=== PATIENT | male | born 1930 | race Caucasian/White ===

== ENCOUNTER 2022-04-11 10:19 | Outpatient (CLI) | payer MEDICARE ==
[2022-04-11 13:24] LABS: ALT (SGPT) 31 U/L (8-55); AST (SGOT) 45 U/L (5-34); Albumin 3.9 g/dL (3.4-4.8); Alkaline Phosphatase 83 U/L (40-110); Anion Gap 15 mmol/L (10-20); BUN (Urea Nitrogen) 29 mg/dL (8.4-25.7); Bilirubin, Direct 0.5 mg/dL (0.1-0.3); Bilirubin, Total 0.9 mg/dL (0.2-1.2); Calc. Creatinine Clearance 0 mL/min (70-130); Carbon Dioxide 23 mmol/L (23-31); Chloride 104 mmol/L (98-107); Estimated GFR 82; Glucose 97 mg/dL (83-110); Protein, Total 6.7 g/dL (5.8-8.1); Sodium 137 mmol/L (136-145)
[2022-04-11 13:28] LABS: #Basophils 0.1 10x3/uL (0.0-0.2); #Monocytes 0.5 10x3/uL (0.0-1.1); #Neutrophils 6.8 10x3/uL (1.5-8.4); %Eosinophils 0.1 % (0.0-6.0); %Lymphocytes 6.2 % (18.0-47.0); %Neutrophils 81.9 % (40.0-75.0); Hemoglobin 10.3 g/dL (13.5-17.5); Mean Corpuscular HGB CONC 34.1 g/dL (32.0-36.0); Mean Corpuscular Volume 93.8 fl (81.2-95.1); Platelet Count 253 10x3/uL (150-450); RBC Distribution Width 18.8 % (11.5-14.5); Red Blood Cell (RBC) Count 3.22 10x6/uL (4.32-5.72); White Blood Cell (WBC) Count 8.3 10x3/uL (3.5-10.5)
[2022-04-11 14:04] LABS: Anisocytosis MODERATE=16-30 cells (100X) (0-5/hpf); Elliptocytes SLIGHT = 2-5 cells (100X) (0-1/hpf); Ovalocytes SLIGHT = 2-5 cells (100X) (0-1/hpf); Poikilocytosis MODERATE=16-30 cells (100X) (0-5/hpf)
[2022-04-11 14:05] LABS: Large Platelets SLIGHT; Platelet Morphology Comment Appears Adequate
== END 2022-04-11 10:20 | disposition home or self-care (01) ==
LOC: LABBT 10:19
PROVIDERS: ATTEND Surgery
DX: Z01.812 Encounter for preprocedural laboratory examination (principal); K80.20 Calculus of gallbladder without cholecystitis without obstruction
CPT/HCPCS: 80048; 80076; 85025

== ENCOUNTER 2022-04-14 07:22 | Day surgery (SDC) | payer MEDICARE ==
[2022-04-13 10:59] VITALS: BMI 22.3
[2022-04-14] MEDS ORDERED: FENTANYL 50 MCG/ML 1 ML VIAL ONE ×3 (11:26→13:31)
[2022-04-14] MEDS ORDERED: SUGAMMADEX SODIUM 200 MG/2 ML VIAL ONE ×2 (11:26→13:07)
[2022-04-14] MEDS ORDERED: Bupivacaine/Epinephrine 0.25% 30 ML VIAL ONE (11:34)
[2022-04-14] MEDS ORDERED: Iopamidol 30 ML ONE (11:34)
[2022-04-14] MEDS ORDERED: Sodium Chloride 0.9% 100 ML ONE (11:38)
[2022-04-14] MEDS ORDERED: CEFAZOLIN 2 GM VIAL ONE (11:38)
[2022-04-14] MEDS ORDERED: Rocuronium Bromide 10 MG/ML (10ML VIAL) ONE (11:55)
[2022-04-14] MEDS ORDERED: Ondansetron PF 4 MG/2 ML Vial ONE (11:55)
[2022-04-14] MEDS ORDERED: NEOSTIGMINE 3 MG/3 ML SYR 3 MG/3 ML SYRINGE ONE (11:55)
[2022-04-14] MEDS ORDERED: Dexamethasone 20 MG/5 ML VIAL ONE (11:55)
[2022-04-14] MEDS ORDERED: GLYCOPYRROLATE/PF 0.2 MG/ML VIAL ONE (11:55)
[2022-04-14] MEDS ORDERED: PROPOFOL 200 MG/20 ML VIAL ONE (11:55)
[2022-04-14] MEDS ORDERED: Labetalol HCl 100 MG/20 ML VIAL ONE (13:15)
[2022-04-14] MEDS ORDERED: Fentanyl 250 MCG/5 ML VIAL ONE (13:18)
[2022-04-14] MEDS ORDERED: hydrALAZINE 20 MG/ML VIAL ONE (13:29)
[2022-04-14] MEDS ORDERED: HYDROcodone/Acetaminophen 5/325 mg Tablet ONE (14:40)
[2022-04-14] MEDS ORDERED: Simethicone Chewable 80 MG TAB PO SCH (15:15)
== END 2022-04-14 17:12 | disposition home or self-care (01) ==
LOC: SDC 07:22
PROVIDERS: ATTEND Surgery
PROC: 0FT44ZZ Resection of Gallbladder, Percutaneous Endoscopic Approach (ICD-10-PCS; principal; 2022-04-14)
PROC: BF101ZZ Fluoroscopy of Bile Ducts using Low Osmolar Contrast (ICD-10-PCS; 2022-04-14)
DX: K81.1 Chronic cholecystitis (principal); I51.9 Heart disease, unspecified; E78.5 Hyperlipidemia, unspecified; G47.30 Sleep apnea, unspecified; Z79.01 Long term (current) use of anticoagulants; Z79.899 Other long term (current) drug therapy; Z95.0 Presence of cardiac pacemaker; Z95.1 Presence of aortocoronary bypass graft
CPT/HCPCS: 47532; 47563; J1610; J3010; 88304; C1889; J0360; J1100; J2405; J2704; J3490; Q9967

== ENCOUNTER 2022-07-21 15:43 | Inpatient (IN) | payer MEDICARE ==
[2022-07-21] MEDS ORDERED: Ondansetron PF 4 MG/2 ML Vial IVP PRN (21:43)
[2022-07-21] MEDS ORDERED: Ondansetron ODT 4 MG TAB PO PRN (21:43)
[2022-07-21] MEDS ORDERED: Senokot S 8.6-50 MG TAB PO PRN (21:43)
[2022-07-21] MEDS ORDERED: Acetaminophen 325 MG TAB PO PRN (21:43)
[2022-07-21 22:00] VITALS: BMI 23.7
[2022-07-21 22:30] LABS: Hemoglobin 7.9 g/dL (14.0-18.0)
[2022-07-21] MEDS ORDERED: Ipratropium/Albuterol 3 ML NEB NEB SCH (22:30)
[2022-07-21 22:37] LABS: INR-International Normal Ratio 1.3; Prothrombin Time 16.9 sec (12.0-14.7)
[2022-07-21 22:38] LABS: PTT 35.9 sec (22.9-36.1)
[2022-07-21] MEDS ORDERED: Ipratropium/Albuterol 3 ML NEB NEB PRN (23:14)
[2022-07-21] MEDS: Cefepime 2 GM in Sodium Chloride 0.9% 100 ML IVPB SCH (23:34)
[2022-07-22 06:16] LABS: Hemoglobin 7.7 g/dL (14.0-18.0); Mean Corpuscular HGB CONC 33.8 g/dL (32.0-36.0); Mean Corpuscular Hemoglobin 33.4 pg (27.0-31.0); Mean Corpuscular Volume 98.9 fl (78.0-98.0); Mean Platelet Volume 8.3 fL (7.4-10.4); Platelet Count 64 10x3/uL (130-400); RBC Distribution Width 25.7 % (11.5-14.5); Red Blood Cell (RBC) Count 2.29 mill/uL (4.70-6.10); Reflex for Review?? YES; White Blood Cell (WBC) Count 0.7 10x3/uL (4.8-10.8)
[2022-07-22 06:34] LABS: Anion Gap 10 mmol/L (10-20); BUN (Urea Nitrogen) 20 mg/dL (8.4-25.7); Calc. Creatinine Clearance 70 mL/min (70-130); Calcium 7.8 mg/dL (7.8-10.44); Carbon Dioxide 23 mmol/L (23-31); Chloride 104 mmol/L (98-107); Estimated GFR 85; Glucose 98 mg/dL (83-110); Potassium 3.3 mmol/L (3.5-5.1); Sodium 134 mmol/L (136-145)
[2022-07-22 07:10] LABS: Anisocytosis SLIGHT = 6-15 cells (100X) (0-5/hpf); Band 4 % (5-11); Differential Comment Immature Cell(s); Elliptocytes MODERATE= 6-15 cells (100X) (0-1/hpf); Eosinophils 2 % (0-10); Lymphocytes 62 % (21-51); MDiff Complete? YES; Monocytes 2 % (0-10); Neutrophil 24 % (42-75); Nucleated RBC 2 % (0); Platelet Morphology Comment Appears Decreased; Poikilocytosis MODERATE=16-30 cells (100X) (0-5/hpf); Reactive Lymphocytes 2 % (0-10); Schistocytes SLIGHT = 2-5 cells (100X) (0-1/hpf)
[2022-07-22] MEDS ORDERED: Senokot S 8.6-50 MG TAB PO PRN (08:15)
[2022-07-22] MEDS ORDERED: Furosemide 20 MG/2 ML VIAL SLOW IVP SCH ×2 (08:15→14:00)
[2022-07-22] MEDS: Thiamine 100 MG TAB PO SCH (08:48)
[2022-07-22] MEDS: CO Q-10 CAPSULE 50 MG PO SCH (08:48)
[2022-07-22] MEDS: Fludrocortisone Acetate 0.1 MG TAB PO SCH (08:49)
[2022-07-22 09:30] LABS: Reticulocyte Count 0.8 % (0.5-1.5)
[2022-07-22 09:49] LABS: Vancomycin, Trough 4.6 ug/mL
[2022-07-22] MEDS ORDERED: Vancomycin 1 GM in Premix Bag 1 BAG IVPB SCH (10:00)
[2022-07-22 10:06] LABS: HIV (1/2) Antibody/Antigen Non-Reactive (NonReactive); Hep C IgG Ab Non-Reactive (NonReactive); Hep C Index 0.19 S/CO (0-0.79)
[2022-07-22] MEDS: Cefepime 2 GM in Sodium Chloride 0.9% 100 ML IVPB SCH ×2 (10:40→23:26)
[2022-07-22] MEDS: Potassium Bicarbonate/Cit Ac 20 MEQ TAB PO SCH ×2 (10:45→13:51)
[2022-07-22] MEDS: Vancomycin 1 GM in Premix Bag 1 BAG IVPB SCH ×2 (11:40→23:27)
[2022-07-22] MEDS: Atorvastatin Calcium 20 MG TAB PO SCH (20:38)
[2022-07-23] MEDS ORDERED: Furosemide 20 MG/2 ML VIAL SLOW IVP SCH ×2 (06:00→16:30)
[2022-07-23 06:09] LABS: Mean Corpuscular Hemoglobin 33.7 pg (27.0-31.0); Mean Corpuscular Volume 99.1 fl (78.0-98.0); RBC Distribution Width 25.1 % (11.5-14.5); Red Blood Cell (RBC) Count 2.36 mill/uL (4.70-6.10); White Blood Cell (WBC) Count 0.7 10x3/uL (4.8-10.8)
[2022-07-23 06:24] LABS: Anion Gap 9 mmol/L (10-20); BUN (Urea Nitrogen) 20 mg/dL (8.4-25.7); Calc. Creatinine Clearance 74 mL/min (70-130); Calcium 8.1 mg/dL (7.8-10.44); Carbon Dioxide 28 mmol/L (23-31); Chloride 101 mmol/L (98-107); Estimated GFR 87; Glucose 101 mg/dL (83-110); Potassium 3.7 mmol/L (3.5-5.1); Sodium 134 mmol/L (136-145)
[2022-07-23 06:46] LABS: Crenated RBC SLIGHT = 1-5 cells (100X) (None Seen); Lymphocytes 80 % (21-51); MDiff Complete? YES; Monocytes 4 % (0-10); Neutrophil 16 % (42-75); Ovalocytes SLIGHT = 2-5 cells (100X) (0-1/hpf); Platelet Count 46 10x3/uL (130-400); Platelet Morphology Comment Appears Decreased; Poikilocytosis MODERATE=16-30 cells (100X) (0-5/hpf); Polychromasia SLIGHT = 2-3 cells (100X) (0-2/hpf); Schistocytes SLIGHT = 2-5 cells (100X) (0-1/hpf)
[2022-07-23] MEDS: CO Q-10 CAPSULE 50 MG PO SCH (08:54)
[2022-07-23] MEDS: Thiamine 100 MG TAB PO SCH (08:54)
[2022-07-23] MEDS: Fludrocortisone Acetate 0.1 MG TAB PO SCH (08:54)
[2022-07-23 09:16] LABS: Hep B Surface AG-Rflx Sendout Negative (Negative); Hepatitis B Core Total Negative (Negative); Hepatitis B Surface AB-Sendout Non Reactive (.)
[2022-07-23] MEDS: Cefepime 2 GM in Sodium Chloride 0.9% 100 ML IVPB SCH (10:41)
[2022-07-23] MEDS: Vancomycin 1 GM in Premix Bag 1 BAG IVPB SCH (11:46)
[2022-07-23 18:12] LABS: Haptoglobin 128 mg/dL (38-329)
[2022-07-23] MEDS: Atorvastatin Calcium 20 MG TAB PO SCH (19:45)
[2022-07-24] MEDS: Furosemide 20 MG/2 ML VIAL SLOW IVP SCH ×2 (06:20→14:32)
[2022-07-24 06:29] LABS: Anion Gap 11 mmol/L (10-20); BUN (Urea Nitrogen) 17 mg/dL (8.4-25.7); Calc. Creatinine Clearance 77 mL/min (70-130); Calcium 8.1 mg/dL (7.8-10.44); Carbon Dioxide 27 mmol/L (23-31); Chloride 100 mmol/L (98-107); Estimated GFR 88; Glucose 94 mg/dL (83-110); Potassium 3.1 mmol/L (3.5-5.1); Sodium 135 mmol/L (136-145)
[2022-07-24 06:38] LABS: Hemoglobin 7.8 g/dL (14.0-18.0); Mean Corpuscular HGB CONC 33.3 g/dL (32.0-36.0); Mean Corpuscular Hemoglobin 33.5 pg (27.0-31.0); Mean Platelet Volume 7.9 fL (7.4-10.4); Platelet Count 54 10x3/uL (130-400); RBC Distribution Width 24.3 % (11.5-14.5); Red Blood Cell (RBC) Count 2.33 mill/uL (4.70-6.10); White Blood Cell (WBC) Count 0.5 10x3/uL (4.8-10.8)
[2022-07-24 06:58] LABS: Anisocytosis SLIGHT = 6-15 cells (100X) (0-5/hpf); Elliptocytes MODERATE= 6-15 cells (100X) (0-1/hpf); MDiff Complete? YES; Macrocytosis SLIGHT = 6-15 cells (100X) (0-5/hpf); Platelet Morphology Comment Appears Decreased; Poikilocytosis MODERATE=16-30 cells (100X) (0-5/hpf); Schistocytes SLIGHT = 2-5 cells (100X) (0-1/hpf)
[2022-07-24] MEDS ORDERED: Potassium Bicarbonate/Cit Ac 20 MEQ TAB PO SCH (07:30)
[2022-07-24] MEDS: Thiamine 100 MG TAB PO SCH (09:09)
[2022-07-24] MEDS: Fludrocortisone Acetate 0.1 MG TAB PO SCH (09:09)
[2022-07-24] MEDS: CO Q-10 CAPSULE 50 MG PO SCH (09:09)
[2022-07-24 15:58] LABS: Bacteria/HPF None Seen HPF (None Seen); Bilirubin Negative (Negative); Blood, Urine Negative (Negative); CAUTI Indications for Culture Dysuria,urgency,freq; Clarity Clear (Clear); Glucose, Urine (Dipstick) Normal (Negative); Ketone, Urine Negative (Negative); Leukocyte Negative Leu/uL (Negative); Nitrite Negative (Negative); Protein, Urine (Dipstick) Negative (Neg-Trace); RBC/HPF 0-3 HPF (0-3); Squamous Epithelial None Seen HPF (0-3); Urobilinogen Normal mg/dL (Less than 2); WBC/HPF 0-3 HPF (0-3); pH, Urine 6.5 (5.0-9.0)
[2022-07-24 16:00] LABS: Urine Culture Reflex No No
[2022-07-24] MEDS: Atorvastatin Calcium 20 MG TAB PO SCH (19:55)
[2022-07-25 05:04] LABS: Hemoglobin 7.3 g/dL (14.0-18.0); Mean Corpuscular HGB CONC 32.3 g/dL (32.0-36.0); Mean Corpuscular Hemoglobin 32.6 pg (27.0-31.0); Mean Platelet Volume 14.4 fL (7.4-10.4); Platelet Count 51 10x3/uL (130-400); RBC Distribution Width 24.3 % (11.5-14.5); Red Blood Cell (RBC) Count 2.24 mill/uL (4.70-6.10); White Blood Cell (WBC) Count 0.7 10x3/uL (4.8-10.8)
[2022-07-25 05:22] LABS: Anion Gap 9 mmol/L (10-20); BUN (Urea Nitrogen) 16 mg/dL (8.4-25.7); Calc. Creatinine Clearance 71 mL/min (70-130); Calcium 8.1 mg/dL (7.8-10.44); Carbon Dioxide 31 mmol/L (23-31); Chloride 99 mmol/L (98-107); Estimated GFR 86; Glucose 94 mg/dL (83-110); Potassium 3.3 mmol/L (3.5-5.1); Sodium 136 mmol/L (136-145)
[2022-07-25] MEDS: Furosemide 20 MG/2 ML VIAL SLOW IVP SCH ×2 (05:57→14:39)
[2022-07-25 06:04] LABS: Anisocytosis MODERATE=16-30 cells (100X) (0-5/hpf); Lymphocytes 80 % (21-51); MDiff Complete? YES; Macrocytosis SLIGHT = 6-15 cells (100X) (0-5/hpf); Monocytes 4 % (0-10); Neutrophil 12 % (42-75); Ovalocytes MODERATE= 6-15 cells (100X) (0-1/hpf); Platelet Morphology Comment Appears Decreased; Poikilocytosis SLIGHT = 6-15 cells (100X) (0-5/hpf); Polychromasia SLIGHT = 2-3 cells (100X) (0-2/hpf); Reactive Lymphocytes 4 % (0-10); Schistocytes SLIGHT = 2-5 cells (100X) (0-1/hpf)
[2022-07-25] MEDS ORDERED: Potassium Bicarbonate/Cit Ac 20 MEQ TAB PO SCH (08:15)
[2022-07-25] MEDS: Fludrocortisone Acetate 0.1 MG TAB PO SCH (08:58)
[2022-07-25] MEDS: CO Q-10 CAPSULE 50 MG PO SCH (08:58)
[2022-07-25] MEDS: Thiamine 100 MG TAB PO SCH (08:58)
[2022-07-25] MEDS ORDERED: Sodium Bicarbonate 2.5 MEQ/5 ML VIAL ONE (10:03)
[2022-07-25] MEDS ORDERED: FENTANYL 50 MCG/ML 1 ML VIAL ONE (10:03)
[2022-07-25] MEDS ORDERED: Midazolam HCl 2 mg/2 ml Vial ONE (10:03)
[2022-07-25] MEDS: Atorvastatin Calcium 20 MG TAB PO SCH (21:47)
[2022-07-26 05:11] LABS: Hemoglobin 7.9 g/dL (14.0-18.0); Mean Corpuscular HGB CONC 31.3 g/dL (32.0-36.0); Mean Corpuscular Hemoglobin 31.5 pg (27.0-31.0); Mean Platelet Volume 10.2 fL (7.4-10.4); Platelet Count 56 10x3/uL (130-400); RBC Distribution Width 24.1 % (11.5-14.5); Red Blood Cell (RBC) Count 2.49 mill/uL (4.70-6.10); White Blood Cell (WBC) Count 0.6 10x3/uL (4.8-10.8)
[2022-07-26 05:27] LABS: Anion Gap 9 mmol/L (10-20); BUN (Urea Nitrogen) 17 mg/dL (8.4-25.7); Calc. Creatinine Clearance 74 mL/min (70-130); Calcium 8.4 mg/dL (7.8-10.44); Carbon Dioxide 33 mmol/L (23-31); Chloride 98 mmol/L (98-107); Estimated GFR 87; Glucose 93 mg/dL (83-110); Potassium 3.3 mmol/L (3.5-5.1); Sodium 137 mmol/L (136-145)
[2022-07-26 06:02] LABS: Anisocytosis MODERATE=16-30 cells (100X) (0-5/hpf); Elliptocytes MODERATE= 6-15 cells (100X) (0-1/hpf); Eosinophils 4 % (0-10); Lymphocytes 82 % (21-51); MDiff Complete? YES; Neutrophil 14 % (42-75); Nucleated RBC 1 % (0); Platelet Morphology Comment Appears Decreased; Poikilocytosis MODERATE=16-30 cells (100X) (0-5/hpf); Schistocytes SLIGHT = 2-5 cells (100X) (0-1/hpf); Tear Drops SLIGHT = 2-5 cells (100X) (0-1/hpf)
[2022-07-26] MEDS: Furosemide 20 MG/2 ML VIAL SLOW IVP SCH ×2 (06:37→15:13)
[2022-07-26] MEDS: Fludrocortisone Acetate 0.1 MG TAB PO SCH (10:03)
[2022-07-26] MEDS: CO Q-10 CAPSULE 50 MG PO SCH (10:03)
[2022-07-26] MEDS: Thiamine 100 MG TAB PO SCH (10:03)
[2022-07-26 11:52] VITALS: BP 132/60; TEMP 97.9
[2022-07-26] MEDS ORDERED: Cefdinir 300 MG CAP PO SCH (21:00)
[2022-07-27] MEDS ORDERED: Azithromycin 250 MG TAB PO SCH (09:00)
== END 2022-07-26 17:08 | disposition home or self-care (01) | DRG 834 ==
LOC: MSONC 15:43
PROVIDERS: ADMIT Internal Medicine; ATTEND Hospitalist
PROC: 07DR3ZX Extraction of Iliac Bone Marrow, Percutaneous Approach, Diagnostic (ICD-10-PCS; principal; 2022-07-25)
DX: C92.00 Acute myeloblastic leukemia, not having achieved remission (principal); I50.43 Acute on chronic combined systolic (congestive) and diastolic (congestive) heart failure; J96.21 Acute and chronic respiratory failure with hypoxia; D61.818 Other pancytopenia; Z66 Do not resuscitate; I48.0 Paroxysmal atrial fibrillation; I25.10 Atherosclerotic heart disease of native coronary artery without angina pectoris; D46.9 Myelodysplastic syndrome, unspecified; Z95.1 Presence of aortocoronary bypass graft
CPT/HCPCS: 36415; 38222; 77012; 80048; 80202; 81001; 83010; 83615; 85025; 85046; 85097; 85384; 85610; 85652; 85730; 86140; 86704; 86706; 86803; 86850; 86900; 86901; 87081; 87340; 87389; 88184; 88237; 88264; 88280; 88305; 88341; 88342; J0692; J1940; J2250; J3010; J3370-JW; J3490

== ENCOUNTER 2022-07-28 12:06 | Inpatient (IN) | payer MEDICARE ==
[2022-07-28 13:35] LABS: Hemoglobin 7.7 g/dL (14.0-18.0); Mean Corpuscular HGB CONC 32.4 g/dL (32.0-36.0); Mean Corpuscular Hemoglobin 32.3 pg (27.0-31.0); Mean Corpuscular Volume 99.8 fl (78.0-98.0); Mean Platelet Volume 8.2 fL (7.4-10.4); Platelet Count 60 10x3/uL (130-400); RBC Distribution Width 23.3 % (11.5-14.5); Red Blood Cell (RBC) Count 2.37 mill/uL (4.70-6.10); White Blood Cell (WBC) Count 0.6 10x3/uL (4.8-10.8)
[2022-07-28 13:47] LABS: ALT (SGPT) 13 U/L (8-55); AST (SGOT) 18 U/L (5-34); Alkaline Phosphatase 61 U/L (40-110); Anion Gap 11 mmol/L (10-20); BUN (Urea Nitrogen) 20 mg/dL (8.4-25.7); Bilirubin, Total 0.7 mg/dL (0.2-1.2); Calc. Creatinine Clearance 0 mL/min (70-130); Calcium 8.2 mg/dL (7.8-10.44); Carbon Dioxide 31 mmol/L (23-31); Chloride 97 mmol/L (98-107); Estimated GFR 82; Globulin 3.6 g/dL (2.4-3.5); Glucose 97 mg/dL (83-110); Protein, Total 6.6 g/dL (5.8-8.1); Sodium 136 mmol/L (136-145); Uric Acid 5.9 mg/dL (3.5-7.2)
[2022-07-28] MEDS ORDERED: Potassium Chloride 20 MEQ TAB ONE (13:54)
[2022-07-28 14:28] LABS: Elliptocytes MODERATE= 6-15 cells (100X) (0-1/hpf); Lymphocytes 55 % (21-51); MDiff Complete? YES; Monocytes 25 % (0-10); Neutrophil 20 % (42-75); Platelet Morphology Comment Appears Adequate; Schistocytes SLIGHT = 2-5 cells (100X) (0-1/hpf)
[2022-07-28] MEDS ORDERED: Ondansetron PF 4 MG/2 ML Vial IVP PRN (14:37)
[2022-07-28] MEDS ORDERED: Ondansetron ODT 4 MG TAB PO PRN (14:37)
[2022-07-28] MEDS ORDERED: Electrolyte Replacement Protocol FS SCH (15:45)
[2022-07-28 17:01] VITALS: BMI 23.1
[2022-07-28] MEDS: Atorvastatin Calcium 20 MG TAB PO SCH (19:51)
[2022-07-28] MEDS: Famotidine 20 MG TAB PO SCH (19:51)
[2022-07-29] MEDS: Acetaminophen 325 MG TAB PO PRN ×2 (03:26→20:40)
[2022-07-29 06:57] LABS: Hemoglobin 7.5 g/dL (14.0-18.0); Mean Corpuscular HGB CONC 33.1 g/dL (32.0-36.0); Mean Corpuscular Hemoglobin 32.2 pg (27.0-31.0); Mean Corpuscular Volume 97.3 fl (78.0-98.0); Mean Platelet Volume 12.9 fL (7.4-10.4); Platelet Count 43 10x3/uL (130-400); Red Blood Cell (RBC) Count 2.33 mill/uL (4.70-6.10); White Blood Cell (WBC) Count 0.7 10x3/uL (4.8-10.8)
[2022-07-29 07:15] LABS: Anion Gap 10 mmol/L (10-20); BUN (Urea Nitrogen) 17 mg/dL (8.4-25.7); Calc. Creatinine Clearance 69 mL/min (70-130); Carbon Dioxide 31 mmol/L (23-31); Chloride 99 mmol/L (98-107); Estimated GFR 86; Glucose 95 mg/dL (83-110); Potassium 3.1 mmol/L (3.5-5.1); Sodium 137 mmol/L (136-145)
[2022-07-29 07:30] LABS: Anisocytosis MODERATE=16-30 cells (100X) (0-5/hpf); Lymphocytes 84 % (21-51); MDiff Complete? YES; Monocytes 4 % (0-10); Neutrophil 12 % (42-75); Ovalocytes MODERATE= 6-15 cells (100X) (0-1/hpf); Platelet Morphology Comment Appears Decreased; Poikilocytosis MODERATE=16-30 cells (100X) (0-5/hpf); Polychromasia SLIGHT = 2-3 cells (100X) (0-2/hpf); Schistocytes MODERATE= 6-15 cells (100X) (0-1/hpf)
[2022-07-29] MEDS ORDERED: Potassium Chloride 20 MEQ TAB PO SCH (08:00)
[2022-07-29] MEDS: Thiamine 100 MG TAB PO SCH (08:12)
[2022-07-29] MEDS: Ascorbic Acid 500 mg Chewable Tablet PO SCH (08:12)
[2022-07-29] MEDS: Multivitamin W/ Minerals 1 TAB PO SCH (08:13)
[2022-07-29] MEDS: CO Q-10 CAPSULE 50 MG PO SCH (08:13)
[2022-07-29] MEDS: Potassium Chloride 10 MEQ TAB PO SCH (08:13)
[2022-07-29] MEDS: Cyanocobalamin (Vitamin B-12) 1,000 MCG TAB PO SCH (08:13)
[2022-07-29] MEDS: Fludrocortisone Acetate 0.1 MG TAB PO SCH (08:13)
[2022-07-29] MEDS: Aspirin Chewable 81 MG TAB PO SCH (08:13)
[2022-07-29] MEDS: Folic Acid 1 MG TAB PO SCH (08:13)
[2022-07-29] MEDS: Ferrous Sulfate 325 MG TAB PO SCH (08:13)
[2022-07-29] MEDS: Allopurinol 300 MG TAB PO SCH (08:14)
[2022-07-29] MEDS: Famotidine 20 MG TAB PO SCH ×2 (08:17→20:36)
[2022-07-29] MEDS ORDERED: Furosemide 40 MG TAB PO SCH (09:00)
[2022-07-29 13:17] LABS: Potassium 3.7 mmol/L (3.5-5.1)
[2022-07-29] MEDS: Furosemide 20 MG TAB PO SCH (14:48)
[2022-07-29] MEDS: Sodium Chloride 0.9% 1,000 ML IV SCH ×2 (14:48→14:55)
[2022-07-29] MEDS: Melatonin 3 MG TAB PO PRN (20:35)
[2022-07-29] MEDS: Voriconazole 50 MG TAB PO SCH (20:35)
[2022-07-29] MEDS: Atorvastatin Calcium 20 MG TAB PO SCH (20:36)
[2022-07-30 07:33] LABS: Hemoglobin 7.7 g/dL (14.0-18.0); Mean Corpuscular HGB CONC 32.6 g/dL (32.0-36.0); Mean Corpuscular Hemoglobin 32.1 pg (27.0-31.0); Mean Corpuscular Volume 98.6 fl (78.0-98.0); RBC Distribution Width 22.9 % (11.5-14.5); Red Blood Cell (RBC) Count 2.41 mill/uL (4.70-6.10)
[2022-07-30 07:37] LABS: Anion Gap 9 mmol/L (10-20); BUN (Urea Nitrogen) 14 mg/dL (8.4-25.7); Calc. Creatinine Clearance 71 mL/min (70-130); Calcium 8.1 mg/dL (7.8-10.44); Carbon Dioxide 28 mmol/L (23-31); Chloride 100 mmol/L (98-107); Estimated GFR 87; Glucose 97 mg/dL (83-110); Potassium 3.2 mmol/L (3.5-5.1); Sodium 134 mmol/L (136-145); Uric Acid 4.2 mg/dL (3.5-7.2)
[2022-07-30] MEDS ORDERED: Potassium Chloride 20 MEQ TAB PO SCH (08:00)
[2022-07-30] MEDS: Multivitamin W/ Minerals 1 TAB PO SCH (08:53)
[2022-07-30] MEDS: Furosemide 20 MG TAB PO SCH ×2 (08:54→15:12)
[2022-07-30] MEDS: Allopurinol 300 MG TAB PO SCH (08:54)
[2022-07-30] MEDS: CO Q-10 CAPSULE 50 MG PO SCH (08:54)
[2022-07-30] MEDS: Ferrous Sulfate 325 MG TAB PO SCH (08:54)
[2022-07-30] MEDS: Folic Acid 1 MG TAB PO SCH (08:54)
[2022-07-30] MEDS: Potassium Chloride 10 MEQ TAB PO SCH (08:54)
[2022-07-30] MEDS: Fludrocortisone Acetate 0.1 MG TAB PO SCH (08:54)
[2022-07-30] MEDS: Thiamine 100 MG TAB PO SCH (08:54)
[2022-07-30] MEDS: Ascorbic Acid 500 mg Chewable Tablet PO SCH (08:54)
[2022-07-30] MEDS: Cyanocobalamin (Vitamin B-12) 1,000 MCG TAB PO SCH (08:54)
[2022-07-30] MEDS: Famotidine 20 MG TAB PO SCH ×2 (08:55→20:15)
[2022-07-30] MEDS: Aspirin Chewable 81 MG TAB PO SCH (08:55)
[2022-07-30] MEDS: valACYclovir 500 MG TAB PO SCH (08:55)
[2022-07-30] MEDS: Voriconazole 50 MG TAB PO SCH ×2 (08:56→20:15)
[2022-07-30 09:02] LABS: Anisocytosis MODERATE=16-30 cells (100X) (0-5/hpf); Elliptocytes SLIGHT = 2-5 cells (100X) (0-1/hpf); Hypochromia SLIGHT = 6-15 cells (100X) (0-5/hpf); Lymphocytes 65 % (21-51); MDiff Complete? YES; Mean Platelet Volume 8.7 fL (7.4-10.4); Monocytes 8 % (0-10); Neutrophil 19 % (42-75); Nucleated RBC 3 % (0); Ovalocytes SLIGHT = 2-5 cells (100X) (0-1/hpf); Platelet Count 37 10x3/uL (130-400); Platelet Morphology Comment Appears Decreased; Poikilocytosis SLIGHT = 6-15 cells (100X) (0-5/hpf); Schistocytes SLIGHT = 2-5 cells (100X) (0-1/hpf); White Blood Cell (WBC) Count 0.8 10x3/uL (4.8-10.8)
[2022-07-30] MEDS ORDERED: Furosemide 40 MG/4 ML VIAL SLOW IVP SCH (12:45)
[2022-07-30] MEDS: Cefepime 1 GM in Sodium Chloride 0.9% 100 ML IVPB SCH (13:04)
[2022-07-30] MEDS: Vancomycin 1 GM in Premix Bag 1 BAG IVPB SCH (14:14)
[2022-07-30] MEDS: Atorvastatin Calcium 20 MG TAB PO SCH (20:14)
[2022-07-30] MEDS ORDERED: Vancomycin 1 GM in Premix Bag 1 BAG IVPB SCH (21:00)
[2022-07-31] MEDS: Cefepime 1 GM in Sodium Chloride 0.9% 100 ML IVPB SCH ×2 (00:42→12:27)
[2022-07-31] MEDS: Vancomycin 1 GM in Premix Bag 1 BAG IVPB SCH ×2 (01:58→14:01)
[2022-07-31 07:32] LABS: Anion Gap 10 mmol/L (10-20); BUN (Urea Nitrogen) 22 mg/dL (8.4-25.7); Calc. Creatinine Clearance 59 mL/min (70-130); Carbon Dioxide 28 mmol/L (23-31); Chloride 97 mmol/L (98-107); Estimated GFR 82; Glucose 117 mg/dL (83-110); Potassium 3.4 mmol/L (3.5-5.1); Sodium 132 mmol/L (136-145); Uric Acid 4.1 mg/dL (3.5-7.2)
[2022-07-31 07:48] LABS: Hemoglobin 7.7 g/dL (14.0-18.0); Mean Corpuscular HGB CONC 32.9 g/dL (32.0-36.0); Mean Corpuscular Hemoglobin 32.7 pg (27.0-31.0); Mean Corpuscular Volume 99.2 fl (78.0-98.0); Mean Platelet Volume 10.4 fL (7.4-10.4); Platelet Count 34 10x3/uL (130-400); RBC Distribution Width 22.7 % (11.5-14.5); Red Blood Cell (RBC) Count 2.36 mill/uL (4.70-6.10)
[2022-07-31] MEDS: Allopurinol 300 MG TAB PO SCH (08:05)
[2022-07-31] MEDS: Aspirin Chewable 81 MG TAB PO SCH (08:05)
[2022-07-31] MEDS: Ascorbic Acid 500 mg Chewable Tablet PO SCH (08:05)
[2022-07-31] MEDS: valACYclovir 500 MG TAB PO SCH (08:05)
[2022-07-31] MEDS: Ferrous Sulfate 325 MG TAB PO SCH (08:05)
[2022-07-31] MEDS: Fludrocortisone Acetate 0.1 MG TAB PO SCH (08:06)
[2022-07-31] MEDS: CO Q-10 CAPSULE 50 MG PO SCH (08:06)
[2022-07-31] MEDS: Folic Acid 1 MG TAB PO SCH (08:06)
[2022-07-31] MEDS: Cyanocobalamin (Vitamin B-12) 1,000 MCG TAB PO SCH (08:08)
[2022-07-31] MEDS: Thiamine 100 MG TAB PO SCH (08:08)
[2022-07-31] MEDS: Potassium Chloride 10 MEQ TAB PO SCH (08:08)
[2022-07-31] MEDS: Furosemide 20 MG TAB PO SCH ×2 (08:08→14:01)
[2022-07-31] MEDS: Multivitamin W/ Minerals 1 TAB PO SCH (08:08)
[2022-07-31] MEDS: Voriconazole 50 MG TAB PO SCH ×2 (08:09→20:41)
[2022-07-31] MEDS: Famotidine 20 MG TAB PO SCH ×2 (08:09→20:40)
[2022-07-31 10:05] LABS: Anisocytosis SLIGHT = 6-15 cells (100X) (0-5/hpf); Differential Comment Immature Cell(s); Elliptocytes SLIGHT = 2-5 cells (100X) (0-1/hpf); Eosinophils 8 % (0-10); Lymphocytes 60 % (21-51); MDiff Complete? YES; Monocytes 4 % (0-10); Neutrophil 20 % (42-75); Ovalocytes SLIGHT = 2-5 cells (100X) (0-1/hpf); Platelet Morphology Comment Appears Decreased; Polychromasia SLIGHT = 2-3 cells (100X) (0-2/hpf); Vacuoles SLIGHT
[2022-07-31] MEDS ORDERED: Potassium Chloride 20 MEQ TAB PO SCH (13:00)
[2022-07-31] MEDS: Atorvastatin Calcium 20 MG TAB PO SCH (20:41)
[2022-08-01] MEDS: Cefepime 1 GM in Sodium Chloride 0.9% 100 ML IVPB SCH ×2 (00:30→15:18)
[2022-08-01] MEDS: Vancomycin 1 GM in Premix Bag 1 BAG IVPB SCH ×2 (01:59→14:19)
[2022-08-01 06:26] LABS: Hemoglobin 7.4 g/dL (14.0-18.0); Mean Corpuscular HGB CONC 32.4 g/dL (32.0-36.0); Mean Corpuscular Hemoglobin 31.9 pg (27.0-31.0); Mean Corpuscular Volume 98.3 fl (78.0-98.0); Mean Platelet Volume 13.1 fL (7.4-10.4); Platelet Count 36 10x3/uL (130-400); RBC Distribution Width 23.1 % (11.5-14.5); Red Blood Cell (RBC) Count 2.32 mill/uL (4.70-6.10); White Blood Cell (WBC) Count 0.8 10x3/uL (4.8-10.8)
[2022-08-01 06:44] LABS: Anion Gap 11 mmol/L (10-20); BUN (Urea Nitrogen) 27 mg/dL (8.4-25.7); Calc. Creatinine Clearance 57 mL/min (70-130); Calcium 8.1 mg/dL (7.8-10.44); Carbon Dioxide 26 mmol/L (23-31); Chloride 98 mmol/L (98-107); Estimated GFR 81; Glucose 105 mg/dL (83-110); Potassium 3.7 mmol/L (3.5-5.1); Sodium 131 mmol/L (136-145)
[2022-08-01 07:49] LABS: Bite Cells SLIGHT = 2-5 cells (100X) (0-1/hpf); Elliptocytes SLIGHT = 2-5 cells (100X) (0-1/hpf); Lymphocytes 55 % (21-51); MDiff Complete? YES; Monocytes 30 % (0-10); Neutrophil 5 % (42-75); Ovalocytes SLIGHT = 2-5 cells (100X) (0-1/hpf); Platelet Morphology Comment Appears Adequate; Reactive Lymphocytes 10 % (0-10); Schistocytes SLIGHT = 2-5 cells (100X) (0-1/hpf); Tear Drops SLIGHT = 2-5 cells (100X) (0-1/hpf)
[2022-08-01] MEDS: Potassium Chloride 10 MEQ TAB PO SCH (09:03)
[2022-08-01] MEDS: Furosemide 20 MG TAB PO SCH ×2 (09:03→14:19)
[2022-08-01] MEDS: Ascorbic Acid 500 mg Chewable Tablet PO SCH (09:03)
[2022-08-01] MEDS: Aspirin Chewable 81 MG TAB PO SCH (09:03)
[2022-08-01] MEDS: Cyanocobalamin (Vitamin B-12) 1,000 MCG TAB PO SCH (09:03)
[2022-08-01] MEDS: Voriconazole 50 MG TAB PO SCH ×2 (09:04→20:08)
[2022-08-01] MEDS: Thiamine 100 MG TAB PO SCH (09:04)
[2022-08-01] MEDS: Ferrous Sulfate 325 MG TAB PO SCH (09:04)
[2022-08-01] MEDS: Multivitamin W/ Minerals 1 TAB PO SCH (09:04)
[2022-08-01] MEDS: Allopurinol 300 MG TAB PO SCH (09:04)
[2022-08-01] MEDS: valACYclovir 500 MG TAB PO SCH (09:04)
[2022-08-01] MEDS: CO Q-10 CAPSULE 50 MG PO SCH (09:04)
[2022-08-01] MEDS: Fludrocortisone Acetate 0.1 MG TAB PO SCH (09:04)
[2022-08-01] MEDS: Folic Acid 1 MG TAB PO SCH (09:14)
[2022-08-01] MEDS: Famotidine 20 MG TAB PO SCH ×2 (09:15→20:07)
[2022-08-01] MEDS ORDERED: Cefepime 2 GM in Sodium Chloride 0.9% 100 ML IVPB SCH (13:15)
[2022-08-01] MEDS: Melatonin 3 MG TAB PO PRN (20:07)
[2022-08-01] MEDS: Atorvastatin Calcium 20 MG TAB PO SCH (20:08)
[2022-08-02] MEDS: Cefepime 2 GM in Sodium Chloride 0.9% 100 ML IVPB SCH ×2 (01:44→13:11)
[2022-08-02] MEDS: Vancomycin 1 GM in Premix Bag 1 BAG IVPB SCH ×2 (01:44→15:29)
[2022-08-02 07:33] LABS: Hemoglobin 7.4 g/dL (14.0-18.0); Mean Corpuscular HGB CONC 31.4 g/dL (32.0-36.0); Mean Corpuscular Hemoglobin 31.3 pg (27.0-31.0); Mean Corpuscular Volume 99.5 fl (78.0-98.0); Mean Platelet Volume 11.6 fL (7.4-10.4); Platelet Count 43 10x3/uL (130-400); RBC Distribution Width 21.6 % (11.5-14.5); Red Blood Cell (RBC) Count 2.37 mill/uL (4.70-6.10); White Blood Cell (WBC) Count 0.7 10x3/uL (4.8-10.8)
[2022-08-02 08:00] LABS: Anion Gap 10 mmol/L (10-20); BUN (Urea Nitrogen) 26 mg/dL (8.4-25.7); Calc. Creatinine Clearance 63 mL/min (70-130); Calcium 7.9 mg/dL (7.8-10.44); Carbon Dioxide 26 mmol/L (23-31); Chloride 98 mmol/L (98-107); Estimated GFR 84; Glucose 93 mg/dL (83-110); Potassium 3.5 mmol/L (3.5-5.1); Sodium 130 mmol/L (136-145)
[2022-08-02] MEDS ORDERED: Potassium Chloride 20 MEQ TAB PO SCH (08:30)
[2022-08-02 09:24] LABS: Anisocytosis MODERATE=16-30 cells (100X) (0-5/hpf); Burr Cells MODERATE= 6-15 cells (100X) (0-1/hpf); Hypochromia SLIGHT = 6-15 cells (100X) (0-5/hpf); Lymphocytes 56 % (21-51); MDiff Complete? YES; Macrocytosis SLIGHT = 6-15 cells (100X) (0-5/hpf); Monocytes 28 % (0-10); Neutrophil 16 % (42-75); Ovalocytes MODERATE= 6-15 cells (100X) (0-1/hpf); Platelet Morphology Comment Appears Decreased; Polychromasia SLIGHT = 2-3 cells (100X) (0-2/hpf)
[2022-08-02] MEDS: valACYclovir 500 MG TAB PO SCH (09:49)
[2022-08-02] MEDS: Fludrocortisone Acetate 0.1 MG TAB PO SCH (09:50)
[2022-08-02] MEDS: Aspirin Chewable 81 MG TAB PO SCH (09:50)
[2022-08-02] MEDS: Ascorbic Acid 500 mg Chewable Tablet PO SCH (09:50)
[2022-08-02] MEDS: Ferrous Sulfate 325 MG TAB PO SCH (09:51)
[2022-08-02] MEDS: CO Q-10 CAPSULE 50 MG PO SCH (09:51)
[2022-08-02] MEDS: Cyanocobalamin (Vitamin B-12) 1,000 MCG TAB PO SCH (09:51)
[2022-08-02] MEDS: Furosemide 20 MG TAB PO SCH ×2 (09:51→15:29)
[2022-08-02] MEDS: Multivitamin W/ Minerals 1 TAB PO SCH (09:51)
[2022-08-02] MEDS: Allopurinol 300 MG TAB PO SCH (09:51)
[2022-08-02] MEDS: Potassium Chloride 10 MEQ TAB PO SCH (09:51)
[2022-08-02] MEDS: Thiamine 100 MG TAB PO SCH (09:52)
[2022-08-02] MEDS: Folic Acid 1 MG TAB PO SCH (09:52)
[2022-08-02] MEDS: Famotidine 20 MG TAB PO SCH ×2 (09:52→20:35)
[2022-08-02] MEDS: Voriconazole 50 MG TAB PO SCH ×2 (13:05→20:35)
[2022-08-02] MEDS: Aluminum & Magnesium Hydroxide 60 ML, diphenhydrAMINE 150 MG, Lidocaine 2% Viscous Solu... SSW SCH ×2 (18:33→20:35)
[2022-08-02] MEDS: Acetaminophen 325 MG TAB PO PRN (20:35)
[2022-08-02] MEDS: Atorvastatin Calcium 20 MG TAB PO SCH (20:35)
[2022-08-02] MEDS: Melatonin 3 MG TAB PO PRN (20:35)
[2022-08-02] MEDS ORDERED: Megestrol Acetate 800 MG/20 ML UDCUP PO SCH (21:00)
[2022-08-03 01:46] LABS: Vancomycin, Trough 19.7 ug/mL
[2022-08-03] MEDS: Cefepime 2 GM in Sodium Chloride 0.9% 100 ML IVPB SCH (02:06)
[2022-08-03] MEDS: Vancomycin 1 GM in Premix Bag 1 BAG IVPB SCH (02:06)
[2022-08-03 06:39] LABS: Hemoglobin 7.1 g/dL (14.0-18.0); Mean Corpuscular HGB CONC 32.3 g/dL (32.0-36.0); Mean Corpuscular Volume 99.1 fl (78.0-98.0); Platelet Count 33 10x3/uL (130-400); RBC Distribution Width 22.9 % (11.5-14.5); Red Blood Cell (RBC) Count 2.22 mill/uL (4.70-6.10); White Blood Cell (WBC) Count 0.6 10x3/uL (4.8-10.8)
[2022-08-03 06:56] LABS: Anion Gap 8 mmol/L (10-20); BUN (Urea Nitrogen) 26 mg/dL (8.4-25.7); CRP (Inflammatory) 2.87 mg/dL (= or < 0.5); Calc. Creatinine Clearance 59 mL/min (70-130); Carbon Dioxide 26 mmol/L (23-31); Chloride 104 mmol/L (98-107); Estimated GFR 82; Glucose 94 mg/dL (83-110); Potassium 3.4 mmol/L (3.5-5.1); Sodium 135 mmol/L (136-145)
[2022-08-03 08:16] LABS: Bite Cells SLIGHT = 2-5 cells (100X) (0-1/hpf); Burr Cells SLIGHT = 2-5 cells (100X) (0-1/hpf); Elliptocytes SLIGHT = 2-5 cells (100X) (0-1/hpf); Lymphocytes 70 % (21-51); MDiff Complete? YES; Monocytes 5 % (0-10); Neutrophil 15 % (42-75); Ovalocytes SLIGHT = 2-5 cells (100X) (0-1/hpf); Platelet Morphology Comment Appears Adequate; Polychromasia SLIGHT = 2-3 cells (100X) (0-2/hpf); Reactive Lymphocytes 10 % (0-10); Schistocytes SLIGHT = 2-5 cells (100X) (0-1/hpf)
[2022-08-03] MEDS ORDERED: Megestrol Acetate 800 MG/20 ML UDCUP PO SCH (09:00)
[2022-08-03 09:09] VITALS: BP 161/67; TEMP 97.6
[2022-08-03] MEDS ORDERED: Potassium Chloride 20 MEQ TAB PO SCH (09:30)
[2022-08-03] MEDS: Allopurinol 300 MG TAB PO SCH (09:43)
[2022-08-03] MEDS: Ferrous Sulfate 325 MG TAB PO SCH (09:43)
[2022-08-03] MEDS: Ascorbic Acid 500 mg Chewable Tablet PO SCH (09:43)
[2022-08-03] MEDS: Aluminum & Magnesium Hydroxide 60 ML, diphenhydrAMINE 150 MG, Lidocaine 2% Viscous Solu... SSW SCH (09:43)
[2022-08-03] MEDS: Famotidine 20 MG TAB PO SCH (09:44)
[2022-08-03] MEDS: Potassium Chloride 10 MEQ TAB PO SCH (09:44)
[2022-08-03] MEDS: Fludrocortisone Acetate 0.1 MG TAB PO SCH (09:44)
[2022-08-03] MEDS: Multivitamin W/ Minerals 1 TAB PO SCH (09:44)
[2022-08-03] MEDS: Folic Acid 1 MG TAB PO SCH (09:44)
[2022-08-03] MEDS: Cyanocobalamin (Vitamin B-12) 1,000 MCG TAB PO SCH (09:44)
[2022-08-03] MEDS: Furosemide 20 MG TAB PO SCH (09:44)
[2022-08-03] MEDS: Aspirin Chewable 81 MG TAB PO SCH (09:44)
[2022-08-03] MEDS: Voriconazole 50 MG TAB PO SCH (09:45)
[2022-08-03] MEDS: Thiamine 100 MG TAB PO SCH (09:45)
[2022-08-03] MEDS: valACYclovir 500 MG TAB PO SCH (09:45)
[2022-08-03] MEDS: CO Q-10 CAPSULE 50 MG PO SCH (09:45)
[2022-08-03] MEDS ORDERED: Lorazepam 2 MG/ML VIAL SLOW IVP PRN (09:46)
[2022-08-03] MEDS ORDERED: Morphine 4 MG/ML VIAL SLOW IVP PRN (09:46)
[2022-08-03] MEDS ORDERED: Morphine 2 MG/ML VIAL SLOW IVP PRN (09:46)
[2022-08-03] MEDS ORDERED: Scopolamine 1.5 mg/72 hour Patch TD SCH (10:00)
== END 2022-08-03 15:16 | disposition hospice, inpatient (51) | DRG 808 ==
LOC: ERS 12:06 → T4-A 14:29 → OBSVTOIN 14:29 → T4-A 07-29 19:54
PROVIDERS: ADMIT Family Medicine; ATTEND Family Medicine
PROC: 30233N1 Transfusion of Nonautologous Red Blood Cells into Peripheral Vein, Percutaneous Approach (ICD-10-PCS; principal; 2022-07-28)
DX: D61.818 Other pancytopenia (principal); Z66 Do not resuscitate; Z51.5 Encounter for palliative care; I50.33 Acute on chronic diastolic (congestive) heart failure; J18.9 Pneumonia, unspecified organism; J96.21 Acute and chronic respiratory failure with hypoxia; C92.00 Acute myeloblastic leukemia, not having achieved remission; I25.10 Atherosclerotic heart disease of native coronary artery without angina pectoris; I48.91 Unspecified atrial fibrillation; G47.33 Obstructive sleep apnea (adult) (pediatric); I95.1 Orthostatic hypotension; E78.5 Hyperlipidemia, unspecified; Y95 Nosocomial condition; E87.6 Hypokalemia; I25.2 Old myocardial infarction; Z79.899 Other long term (current) drug therapy; Z79.82 Long term (current) use of aspirin; Z95.1 Presence of aortocoronary bypass graft; Z95.0 Presence of cardiac pacemaker; Z95.5 Presence of coronary angioplasty implant and graft; Z90.49 Acquired absence of other specified parts of digestive tract; Z80.9 Family history of malignant neoplasm, unspecified
CPT/HCPCS: 36415; 36430; 71045; 80048; 80053; 80202; 83615; 83880; 84145; 84550; 85025; 86140; 86850; 86900; 86901; 99285; J0692; J1940; J3370-JW; J3490; J7050; P9016; Q0163

== ENCOUNTER 2022-08-03 15:22 | Inpatient (IN) | payer OTHER ==
[2022-08-03] MEDS ORDERED: Morphine 10 MG/0.5 ML ORAL SYRINGE SL PRN (15:51)
[2022-08-03] MEDS ORDERED: Haloperidol 1 MG TAB PO PRN (15:55)
[2022-08-03] MEDS ORDERED: diphenhydrAMINE 25 MG CAP PO PRN (16:00)
[2022-08-03] MEDS ORDERED: Haloperidol Lactate 5 MG/ML VIAL SLOW IVP PRN (16:00)
[2022-08-03] MEDS ORDERED: Milk Of Magnesia 30 ML UDCUP PO PRN (16:00)
[2022-08-03] MEDS ORDERED: Loperamide HCl 2 MG CAP PO PRN (16:00)
[2022-08-03] MEDS ORDERED: diphenhydrAMINE 50 MG/ML VIAL IVP PRN (16:00)
[2022-08-03] MEDS ORDERED: Promethazine HCl 25 MG SUPP PR PRN (16:00)
[2022-08-03] MEDS ORDERED: Ondansetron ODT 4 MG TAB PO PRN (16:00)
[2022-08-03] MEDS ORDERED: Senokot S 8.6-50 MG TAB PO PRN (16:00)
[2022-08-03] MEDS ORDERED: Acetaminophen 325 MG TAB PO PRN (16:00)
[2022-08-03] MEDS ORDERED: Ondansetron PF 4 MG/2 ML Vial IVP PRN (16:00)
[2022-08-03] MEDS ORDERED: Hyoscyamine SL 0.125 MG TAB SL PRN (16:00)
[2022-08-03] MEDS ORDERED: Zolpidem Tartrate 5 MG TAB PO PRN (16:00)
[2022-08-03] MEDS ORDERED: Scopolamine 1.5 mg/72 hour Patch TOP PRN (16:00)
[2022-08-03] MEDS: Lorazepam 1 MG TAB PO PRN (20:10)
[2022-08-04] MEDS: Lorazepam 1 MG TAB PO PRN (11:59)
[2022-08-04] MEDS: Morphine 2 MG/ML VIAL SLOW IVP PRN ×3 (14:43→22:01)
[2022-08-04] MEDS: Lorazepam 2 MG/ML VIAL SLOW IVP PRN (22:05)
[2022-08-05] MEDS: Morphine 2 MG/ML VIAL SLOW IVP PRN ×9 (01:14→23:34)
[2022-08-05] MEDS: Lorazepam 2 MG/ML VIAL SLOW IVP PRN ×5 (03:23→23:34)
[2022-08-06] MEDS: Morphine 2 MG/ML VIAL SLOW IVP PRN ×5 (03:31→20:54)
[2022-08-06] MEDS: Lorazepam 2 MG/ML VIAL SLOW IVP PRN ×5 (03:32→20:54)
[2022-08-06] MEDS: Acetaminophen 650 MG Suppository PR PRN (16:56)
[2022-08-07] MEDS: Morphine 2 MG/ML VIAL SLOW IVP PRN ×8 (00:52→22:14)
[2022-08-07] MEDS: Lorazepam 2 MG/ML VIAL SLOW IVP PRN ×5 (00:52→19:55)
[2022-08-07] MEDS: Acetaminophen 650 MG Suppository PR PRN ×2 (04:05→11:26)
[2022-08-07 21:30] VITALS: BP 105/58; TEMP 99.9
[2022-08-08] MEDS: Morphine 2 MG/ML VIAL SLOW IVP PRN ×3 (02:25→04:06)
[2022-08-08] MEDS: Lorazepam 2 MG/ML VIAL SLOW IVP PRN ×2 (04:06)
== END 2022-08-08 07:20 | disposition expired | DRG 951 ==
LOC: T4-A 15:22
PROVIDERS: ADMIT Family Medicine; ATTEND Family Medicine
PROC: 0T9B70Z Drainage of Bladder with Drainage Device, Via Natural or Artificial Opening (ICD-10-PCS; principal; 2022-08-06)
DX: Z51.5 Encounter for palliative care (principal); Z66 Do not resuscitate; J18.9 Pneumonia, unspecified organism; D61.818 Other pancytopenia; C92.00 Acute myeloblastic leukemia, not having achieved remission; I50.9 Heart failure, unspecified; E78.5 Hyperlipidemia, unspecified; I25.10 Atherosclerotic heart disease of native coronary artery without angina pectoris; G47.33 Obstructive sleep apnea (adult) (pediatric); I48.91 Unspecified atrial fibrillation; Y95 Nosocomial condition; Z79.899 Other long term (current) drug therapy
CPT/HCPCS: J2060; J2272